=== PATIENT | female | born 1965 | race Caucasian/White ===

== ENCOUNTER 2024-06-15 11:36 | Emergency (ER) | payer BC, SELFPAY ==
[2024-06-15 11:38] VITALS: BP 179/104; PULSE 89; RESP 18; TEMP 36.9; O2SAT 99; BMI 30.7
--- NOTE | 2024-06-15 11:46 | PC.NURSE ---
Pt. sititng in room. No needs at this time. Call Light in reach
--- NOTE | 2024-06-15 11:55 | PC.NURSE ---
DR BERNAL AT BEDSIDE
--- NOTE | 2024-06-15 12:02 | ECG_ITS ---
APPROVED REPORT Exam: Resting ECG HR:79 bpm ECG Measurements Heart Rate 79 AXES NM 145 P 65 QRSd 89 QRS -43 QT 381 T 57 QTc 416 Conclusion SINUS RHYTHM LEFT AXIS DEVIATION [QRS AXIS < -30] POSSIBLE RIGHT VENTRICULAR CONDUCTION DELAY [RSR (QR) IN V1/V2] Electronically signed by : ZOHRA BERNAL, 06/17/2024 15:13:41
--- NOTE | 2024-06-15 12:16 | ED_ITS ---
Discharge Plan Disposition Patient Disposition: Home, Self-Care Prescriptions Prescriptions: New esomeprazole magnesium 20 mg capsule,delayed release(DR/EC) 20 mg PO DAILY 56 Days Qty: 56 1RF Referrals Follow up/Referrals: Naomi Coronado [Primary Care Provider] - See instructions Activity Restrictions/Add. Instructions Additional Instructions/Restrictions: Call your family doctor to establish care for this visit to the emergency department and schedule follow-up within 48 hours to ensure improvement. If you have any worsening of your condition or any other concerning signs or symptoms, return to the emergency department or your primary care doctor for further evaluation. Clinical Impressions Clinical Impression: Gastritis Print Language Print Language: Belarusian Discharge ED Provider: iPno Humphrey General Adult HPI General Chief complaint: Recheck/Abnormal Lab/Rx Stated complaint: high bp Time Seen by Provider: 06/15/24 11:42 Mode of Arrival: Ambulatory Source of Information: Patient Limitations: No Limitations Description of Symptoms (Recalled from ER Triage Doc. by RN): PT REPORTS ELEVATED BLOOD AT HOME, RECENT STRESSORS AT HOME. PT FEELS LIKE SHE IS HAVING A HARD TIME TAKING A DEEP BREATH. DENIES CHEST PAIN. IS SUPPOSED TO TAKE B/P MEDS AND HAS NOT FOR MONTHS History of Present Illness HPI narrative: Please note that above description of symptoms, in this electronic medical record under categorization of recalled from ER triage doctor by RN are reflective of an initial nursing assessment, however, is not reflective of my full history and physical exam that was personally taken and clarified. Consequentially, this preceding description of symptoms, which may include the patient's categorized chief complaint in the EMR, do not reflect my personal clinical impression, and the ultimate description of history of present illness and patient stated complaints should be deferred to this section of the note. Unless stated otherwise or congruent with this section of the note, additional signs, symptoms, or incongruence should be interpreted as inaccurate with my clinical impression. Related Data Previous Rx's ?Medication ?Instructions ?Recorded esomeprazole magnesium 20 mg 20 mg PO DAILY 8 weeks #56 caps 06/15/24 capsule,delayed release Allergies Allergy/AdvReac Type Severity Reaction Status Date / Time No Known Allergies Allergy Verified 06/15/24 13:32 [facility] Disclaimer: The information contained in this section may have been updated after the patient was seen, as this information can be updated by other users. Social History Smoking Status: Never smoker alcohol intake: current current occupational status: employed Travel in the last 8 weeks: None ROS Obtained: Yes All systems reviewed & no additional complaints except as documented Physical Exam General General appearance: alert Head Head exam: atraumatic and normocephalic Eye Eye exam: Present normal appearance, PERRL and EOMI Neck Neck exam: Present normal inspection, full ROM and trachea midline Respiratory Respiratory exam: Present normal lung sounds bilaterally; Absent respiratory distress, wheezes, stridor, accessory muscle use or prolonged expiratory phase Cardiovascular Cardiovascular exam: Present regular rate, normal rhythm, normal heart sounds and other (Pulses equal symmetric in upper and lower extremities) Abdominal Exam Abdominal exam: Present soft; Absent distention, tenderness or pulsatile mass Extremities Exam Extremities exam: Absent edema Neurological Exam Neurological exam: Present alert, oriented X3 and CN II-XII intact; Absent motor sensory deficit Skin Skin exam: Present warm and dry; Absent diaphoresis or erythema Medical Decision Making Medical Records Medical records reviewed: Yes I reviewed the patient's medical records. Screening: Per USPSTF and CDC recommendations, given the prevalence of disease in our region, it is our hospital?s policy to screen for HIV and viral Hepatitis for all patients aged 18 and over and those with ongoing risk factors. William Inquiry Pt receiving controlled substance: No William was queried for this patient: No Vital Signs: 06/15/24 11:38 Temperature 98.5 F Temperature Source Oral Pulse Rate [Radial] 89 Respiratory Rate 18 Blood Pressure [Left Arm] 179/104 H Blood Pressure Mean [Left Arm] 129 Blood Pressure Source [Left Arm] Automatic Cuff Blood Pressure Position [Left Arm] Sitting 02 Sat by Pulse Oximetry 99 Oxygen Delivery Method Room Air Lab Data Lab Results 06/15/24 12:08: WBC 5.2, RBC 4.49, Hgb 14.3, Hct 42.6, MCV 94.9, MCH 31.8 H, MCHC 33.6, RDW 11.9, Plt Count 264, MPV 10.8 H, Neut % (Auto) 59.4, Lymph % (Auto) 23.4, [place] % (Auto) 11.9 H, Eos % (Auto) 3.8, Baso % (Auto) 1.3, Neut # (Auto) 3.1, Lymph # (Auto) 1.2, [place] # (Auto) 0.6, Eos # (Auto) 0.2, Baso # (Auto) 0.1, PT 11.1, INR 0.99, APTT 24.7, Sodium 136, Potassium 4.6, Chloride 101, Carbon Dioxide 27, Anion Gap 12.6, BUN 10, Creatinine 0.70, Estimated Creat Clear 80, Estimated GFR 85, Est GFR ( Amer) 103, Glucose 105 H, Calcium 10.1, Total Bilirubin 0.8, AST 89 H, ALT 107 H, Alkaline Phosphatase 65, Troponin I < 0.01, NT-Pro-B Natriuret Pep 120, Total Protein 7.9, Albumin 4.7, Globulin 3.2, Albumin/Globulin Ratio 1.5 06/15/24 12:08 06/15/24 12:08 Orders (Tests/Meds): ORDERS Category Date Time Status Complete Blood Count Auto Diff Stat Lab 06/15/24 12:08 Completed Comprehensive Metabolic Panel Stat Lab 06/15/24 12:08 Completed NT Pro Brain Natriuretic Pep. Stat Lab 06/15/24 12:08 Completed PT INR [Prothrombin Time INR] Stat Lab 06/15/24 12:08 Completed PTT [Activated Partial Thrombo Time] Stat Lab 06/15/24 12:08 Completed Troponin I Q3H Lab 06/15/24 15:00 Ordered Troponin I Q3H Lab 06/15/24 18:00 Ordered Troponin I Stat Lab 06/15/24 12:08 Completed Medical Decision Narrative: 59 female history of polycystic kidney disease, chronic alcoholism presenting with hypertension. Patient states that she has had numerous social stressors, was previously an alcoholic, has recently returned to drinking alcohol. Currently drinking about 6 beers per day and last drink was today. States that she started belching, more than she usually does. Took a baby aspirin [facility] and [facility] 160 systolic. Took another baby aspirin, continued belching, so came here for further evaluation. No chest pain, shortness of breath, nausea or vomiting, diaphoresis, etc. Called her family doctor who recommended she come to the emergency department for workup. Patient is currently noncompliant with medications, likely complicating current care. History was obtained via conversation with patient. On arrival, patient hemodynamically stable, alert, oriented x4, appropriate, GCS 15, moving all extremities spontaneously, pupils equal and reactive to light. Full physical exam performed and significant for well-appearing female no acute distress. Lungs are clear, cardiac exam normal. Speaking in full sentences, neurologically intact and clinically very well. Differential includes gastritis, enteritis, pancreatitis, ACS, LA, among others. Patient placed on continuous cardiac monitoring and continuous pulse ox with initial blood pressure 179/104, heart rate 89, saturation 99% on room air. Independent interpretation of EKG shows sinus rhythm 79 bpm with no acute ischemic change. [place] 145, QRS 89, QTc 416. Left axis deviation.. Patient was given aspirin for symptomatic management and correction of underlying abnormalities. Workup independently interpreted and significant for nonactionable hematologic labs. On reevaluation, patient resting comfortably. Given patient presentation, workup, history, this most likely represents gastritis in the setting of alcoholism. Because patient at baseline without signs or symptoms of clinical decompensation, deemed appropriate for discharge. Results were relayed to patient who voiced understanding and were agreeable to outpatient management and follow up. I discussed my clinical impression with patient and answered all questions. At this time, the evidence for any other entities in the differential is insufficient to warrant any further testing or ED observation. This was explained as well. Advisory was given that persistent or worsening symptoms require further evaluation. I confirmed the understanding of this discussion. [employer] Intern disclaimer Much of this encounter note is an electronic skein mercerizing machine operator spoken language to printed text. Electronic skein mercerizing machine operator of the spoken language may permit errors. Although I have reviewed the note, some errors may still exist. Critical Care Critical Care Time Critical Care Time: No
[2024-06-15 12:27] LABS: Activated Partial Thrombo Time 24.7 seconds (22.8-30.6); INR 0.99 (0.9-1.1); Prothrombin Time 11.1 seconds (10.1-12.5)
[2024-06-15 12:31] LABS: Hematocrit 42.6 % (37.0-47.0); Hemoglobin 14.3 g/dL (12.2-16.2); Mean Corpuscular Volume 94.9 fl (81-99); Red Blood Count 4.49 M/mm3 (4.20-5.40); White Blood Count 5.2 K/mm3 (4.8-10.8)
[2024-06-15 12:32] LABS: Lymphocytes % 23.4 % (10-50); Mean Corpuscular HGB Conc 33.6 g/dL (31.8-35.4); Mean Corpuscular Hemoglobin 31.8 pg (27.0-31.2); Mean Platelet Volume 10.8 fl (7.4-10.4); Monocytes % 11.9 % (1.7-9.3); Neutrophils % 59.4 % (37.0-80.0); Platelet Count 264 K/mm3 (142-424); Red Cell Distribution Width 11.9 % (11.5-17.5)
[2024-06-15 12:33] LABS: Basophils # 0.1 K/mm3 (0-0.2); Basophils % 1.3 % (0.1-2.0); Eosinophils # 0.2 K/mm3 (0.0-0.4); Eosinophils % 3.8 % (0.1-12.0); Lymphocytes # 1.2 K/mm3 (0.7-4.5); Monocytes # 0.6 K/mm3 (0.1-1.0); Neutrophils # 3.1 K/mm3 (1.8-7.8)
[2024-06-15 12:36] LABS: Albumin Level 4.7 g/dl (3.5-5.0); Chloride 101 mmol/L (98-107); Potassium 4.6 mmoL/L (3.5-5.1); Sodium 136 mmol/L (136-145)
[2024-06-15 12:38] LABS: Blood Urea Nitrogen 10 mg/dl (7-17); Creatinine Clearance Estimated 80 mL/min (50-200); Estimated Glomerular Filt Rate 85 ml/min (>60); GFR (African American) 103 ML/MIN (>60)
[2024-06-15 12:39] LABS: Alanine Aminotransferase 107 U/L (12-78); Albumin/Globulin Ratio 1.5 (1.1-1.8); Alkaline Phosphatase 65 U/L (38-126); Anion Gap 12.6 mEq/L (5-15); Aspartate Amino Transferase 89 U/L (14-36); Bilirubin,Total 0.8 mg/dl (0.2-1.3); Calcium 10.1 mg/dl (8.4-10.2); Carbon Dioxide 27 mmol/L (22.0-30.0); Globulin 3.2 g/dL (1.3-3.2); Glucose 105 mg/dl (74-100); Total Protein,Serum 7.9 g/dl (6.3-8.2)
[2024-06-15 12:48] LABS: NT Pro Brain Natriuretic Pep. 120 pg/mL (0-125)
[2024-06-15 13:02] LABS: Troponin I < 0.01 ng/ml (0.00-0.034)
--- NOTE | 2024-06-15 13:10 | PC.NURSE ---
ROUNDED ON PT, UPDATED ON POC. CALL LIGHT WITHIN REACH
--- NOTE | 2024-06-15 13:17 | PC.NURSE ---
DR BERNAL AT BEDSIDE
[2024-06-15 13:40] VITALS: BP 187/99; PULSE 82; RESP 20; TEMP 36.9; O2SAT 98
== END 2024-06-15 13:41 | disposition home or self-care (01) ==
PROVIDERS: Emergency Provider Emergency Medicine; PCP Nurse Practitioner Family
DX: K29.70 Gastritis, unspecified, without bleeding (principal); R06.89 Other abnormalities of breathing; I10 Essential (primary) hypertension; R14.2 Eructation
CPT/HCPCS: 80053; 83880; 84484; 85025; 85610; 85730; 93005; 99283